=== PATIENT | female | born 1990 | race Caucasian/White ===

== ENCOUNTER 2017-04-08 18:58 | Emergency (ER) | payer BC ==
[~2017-04-08] VITALS: Ht 165.1 cm; Wt 60.5 kg
[2017-04-08 19:01] VITALS: TEMP 98.6
[2017-04-08 20:50] VITALS: BP 135/92; PULSE 83
== END 2017-04-08 20:56 | disposition home or self-care (01) ==
LOC: COL.ER 18:58
DX: G43.909 Migraine, unspecified, not intractable, without status migrainosus (principal)